=== PATIENT | male | born 1945 | race Caucasian/White ===

== ENCOUNTER 2017-11-28 01:31 | Inpatient (IN) | payer OTHER ==
[~2017-11-28] VITALS: Ht 175 cm; Wt 108.0 kg
[~2017-11-28 01:31] MED LIST: ATORVASTATIN CA10 M1 PO; LISINOPRIL-HCT1 EACH PO; OMEPRAZOLE40 M1 PO
[2017-11-28] MEDS ORDERED: HYDROCODON-ACE1 EAC2 PO (10:59)
[2017-11-28] MEDS ORDERED: VITAMIN B-121000 MC3 PO (11:00)
--- NOTE | 2017-11-28 11:29 | Admission Core Measures ---
Acute Coronary Syndrome (CM) ACS Core Measures Acute Coronary Syndrome Diagnosis No Congestive Heart Failure (NEW) CHF Core Measures Congestive Heart Failure Diagnosis No Cerebrovascular Accident CVA Core Measures CVA/TIA Diagnosis No Venous Thromboembolism VTE Core Osman (View Protocol) VTE Risk Factors Surgery No Mechanical VTE Prophylaxis d/t N/A MechProphylax Ordered No VTE Pharm Prophylaxis d/t NA PharmProphylax ordered Problem List As ranked by this Provider includes Assessment & Plan 1. Anh-prosthetic femoral shaft fracture HOME MEDS Home Med List Atorvastatin Calcium 10 MG TABLET 1 TAB PO DAILY CHOLESTEROL (Reported) Cyanocobalamin (Vitamin B-12) 1,000 MCG TABLET 1 TAB PO DAILY SUPP (Reported) Hydrocodone/Acetaminophen (Hydrocodon-Acetaminophen 5-325) 5 MG-325 MG TABLET 1 TAB PO EVERY 6HRS. PRN PAIN (Reported) Lisinopril/Hydrochlorothiazide (Lisinopril-Hctz 20-12.5 MG Tab) 20 MG-12.5 MG TABLET 1 TAB PO DAILY HTN (Reported) Omeprazole 40 MG CAPSULE.DR 1 CAP PO DAILY GERD (Reported)
[2017-11-28] MEDS ORDERED: ASPIRIN EC81 M1 PO (12:58)
[2017-11-28] MEDS ORDERED: COLACE100 M1 PO (12:58)
[2017-11-28] MEDS ORDERED: DILAUDID2 M1 PO (12:58)
[2017-11-28] MEDS ORDERED: MIRALAX17 G1 PO (12:58)
--- NOTE | 2017-11-28 13:01 | Patient Discharge Instructions ---
Discharge Instructions General Discharge Information You were seen/treated for: Right hip pain You had these procedures: Right total hip revision Watch for these problems: Fever over 101, Drainage from wound, Redness and swelling around wound, Unable to bear weight on right lower extremity No bath, but you may shower: Yes Special Instructions: Daily dry dressing change Diet Continue normal diet: Yes Activity Activity Limited to: Weight bear as tolerated (with rolling walker) Acute Coronary Syndrome Inclusion Criteria At DC or during hospital stay patient has or had the following: ACS DIAGNOSIS No Discharge Core Measures Meds if any: Prescribed or Continued at Discharge Meds if any: NOT Prescribed or Continued at Discharge Congestive Heart Failure Inclusion Criteria At DC or during hospital stay patient has or had the following: CHF DIAGNOSIS No Discharge Core Measures Meds if any: Prescribed or Continued at Discharge Meds if any: NOT Prescribed or Continued at Discharge Cerebrovascular accident Inclusion Criteria At DC or during hospital stay patient has or had the following: CVA/TIA Diagnosis No Discharge Core Measures Meds if any: Prescribed or Continued at Discharge Meds if any: NOT Prescribed or Continued at Discharge Venous thromboembolism Inclusion Criteria VTE Diagnosis No VTE Type NONE VTE Confirmed by (Test) NONE Discharge Core Measures - Per Current guidelines, there needs to be overlap - treatment for the first 5 days of Warfarin therapy. - If discharged on Warfarin prior to 5 days of - overlap therapy, the patient will need to be - assessed for post discharge needs including - *Post discharge parental anticoagulation - *Warfarin and/or parental anticoagulation education - *Follow up date to check INR post discharge At least 5 days overlap therapy as Inpatient No Meds if any: Prescribed or Continued at Discharge Note: Overlap Therapy is Warfarin and Anticoagulant Meds if any: NOT Prescribed or Continued at Discharge
--- NOTE | 2017-11-28 13:04 | Surgical Discharge Summary ---
Visit Information Visit Dates Admission Date: 11/28/17 Discharge Date: 12/01/17 History of Present Illness Chief Complaint: Right hip pain and existing right hip replacement Medical History Blood Transfusion Hx: Yes (2 uprbc) Isolation History: Standard Surgical History Pertinent Surgical History: hip replacement Review of Systems: As per [facility] Hospital Course Course Attending Physician: Samuel Costa MD Primary Care Physician: Dot LANG,[facility] Course: On 11/28/2017 patient presented for an elective revision of her right total hip replacement by Dr. Costa. Patient tolerated the procedure well. Postoperatively she was tolerating regular diet, voiding spontaneously, ambulating with physical therapy using a rolling walker, she was cleared for discharge. She was given discharge instructions and was instructed to follow up with Dr. Costa in 6 weeks. Patient was instructed to call sooner if she has any questions or concerns. Allergies: Coded Allergies: cefaclor (From CECLOR) (Mild, RASH 11/28/17) Disposition Summary Disposition Principal Diagnosis: Right hip periprosthetic fracture Additional Diagnosis: Status post right total hip replacement revision Discharge Disposition: home health services Discharge Instructions General Discharge Information Code Status: Full Code Patient's Diet: Regular Patient's Activity: Weight-bearing as tolerated with rolling walker Follow-Up Instructions/Appts: Follow-up with Dr. Costa in 6 weeks. Call sooner with any questions or concerns Medications at Discharge Discharge Medications: Stop taking the following medications: Hydrocodone/Acetaminophen (Hydrocodon-Acetaminophen 5-325) 5 MG-325 MG TABLET ORAL EVERY 6HRS. as needed for PAIN Continue taking these medications: Atorvastatin Calcium (Atorvastatin Calcium) 10 MG TABLET 1 Tablet ORAL DAILY Lisinopril/Hydrochlorothiazide (Lisinopril-Hctz 20-12.5 MG Tab) 20 MG-12.5 MG TABLET 1 Tablet ORAL DAILY Omeprazole (Omeprazole) 40 MG CAPSULE.DR 1 Capsule ORAL DAILY Cyanocobalamin (Vitamin B-12) 1,000 MCG TABLET 1 Tablet ORAL DAILY Start taking the following new medications: Aspirin (Ecotrin*) 81 MG TABLET.DR 1 Tablet ORAL TWICE DAILY Qty = 60 No Refills Hydromorphone HCl (Dilaudid) 2 MG TABLET 1-2 Tablet ORAL EVERY 4-6 HOURS NEEDED as needed for PAIN Qty = 36 No Refills Docusate Sodium (Colace) 100 MG CAPSULE 1 Capsule ORAL TWICE DAILY Qty = 14 No Refills Instructions: STOP TAKING IF YOU DEVELOP LOOSE STOOL/DIARRHEA Polyethylene Glycol 3350 (Miralax) 17 GRAM POWD.PACK 1 Packet ORAL DAILY Qty = 7 No Refills Instructions: dissolve in water. STOP TAKING IF YOU DEVELOP LOOSE STOOL/DIARRHEA Copies To: Dot LANG,Skye Canas
--- NOTE | 2017-11-28 17:22 | Operative Report ---
Operative/Inv Procedure Report Surgery Date: 11/28/17 Name of Procedure: Right total hip revision Pre-Operative Diagnosis: Right [place] type BII periprosthetic femur fracture Post-Operative Diagnosis: Same Estimated Blood Loss: 650 Surgeon/Smt Operator: Igor LANG,Samuel Donnelly Anesthesia: block Operative/Procedure Note Note: Description of Procedure: The patient was taken to the operating room and positively identified. After induction of spinal anesthesia and administration of appropriate pre-operative antibiotics, the patient was positioned supine on the operating room table and all bony prominences were well padded. After performing a surgical timeout, the right lower extremity was prepped and draped in the usual sterile fashion. Utilizing the previous incision, an extensile direct anterior approach was made to the right hip. This was carried down through skin and subcutaneous tissue to the level of the fascia. Meticulous hemostasis was maintained with Bovie cautery. The deep fascia was opened and the joint was entered. Minimal hematoma was encountered due to the age of the periprosthetic fracture. The femoral head was noted to be sitting on the calcar region. Extensive scar tissue was resected in order to gain exposure to the joint. The hip was dislocated and the femoral head and stem were disimpacted without difficulty. Exposure continued until the complete circumference of the proximal femur could be visualized. It was noted that the medial calcar fragment was nearly completely healed. The position in which it was healed was noted to be satisfactory. A pair of Dall-Miles cables were passed from the proximal femur. The canal was then prepared for a Newton sikh modular conical distal stem. It was reamed to accept a 19 mm x 155 mm sikh modular conical distal stem. The proximal femur was then prepared to accept a 23 mm +0 cone body. This was trialed for leg length and stability. The trial cone body was removed and the final cone body was impacted into place. The torque bolt was tightened to specification. The trunnion was cleaned and fit with a 36 mm -2.5 Biolox delta ceramic femoral head. The hip was reduced and put through a full range of motion and found to be quite stable. The intra-articular space was copiously irrigated with sterile saline. The periarticular soft tissues were infiltrated with Marcaine. The fascial layer was closed with interrupted #1 Vicryl sutures. The skin was reapproximated with interrupted 2-0 Vicryl and closed with jody. Was applied, the patient was awakened and taken to the recovery room in satisfactory condition.
[2017-11-28 17:28] LABS: ABSOLUTE BASOPHIL COUNT 0.1 /CUMM (0.0-0.2); ABSOLUTE EOSINOPHIL COUNT 0.2 /CUMM (0.0-0.7); ABSOLUTE GRANULOCYTE CT 6.9 /CUMM (1.4-6.5); ABSOLUTE LYMPH COUNT 2.4 /CUMM (1.2-3.4); ABSOLUTE MONOCYTE COUNT 0.9 /CUMM (0.10-0.60); BASOPHIL % 0.8 % (0.0-2.0); GRANULOCYTE % 65.7 % (42.2-75.2); HEMATOCRIT 31.1 % (42-52); MEAN CORPUSCULAR HGB 31.7 PG (27.0-31.0); MEAN CORPUSCULAR HGB CONC 33.5 G/DL (33.0-37.0); MEAN CORPUSCULAR VOLUME 94.8 FL (80.0-94.0); RBC DISTRIBUTION WIDTH 13.1 % (11.5-14.5); RED BLOOD CELL CT 3.28 /CUMM (4.70-6.10); WHITE BLOOD CELL COUNT 10.4 /CUMM (4.8-10.8)
[2017-11-28 17:49] LABS: MEAN PLATELET VOLUME ND FL (7.4-10.4); PLATELET COUNT ND /CUMM (130-400)
--- NOTE | 2017-11-28 19:19 | RADIOLOGY REPORT ---
EXAMINATION: XR HIP, RIGHT CLINICAL INFORMATION: Status post right total hip replacement. COMPARISON: None TECHNIQUE: Two views of the right hip. FINDINGS: There is a total right hip replacement with a immediate postop changes. The prosthetic components are in satisfactory alignment. There is a drainage catheter in the right lateral proximal thigh. IMPRESSION: Status post total right hip replacement with immediate postop changes noted.
[2017-11-28 19:35] VITALS: BP 130/68
--- NOTE | 2017-11-28 20:46 | PN- Orthopedic ---
Subjective Subjective: POC c/o pain at right hip/thigh, due for pain meds now. no oob, awaiting pt eval in am. +up via dejesus. 2nd unit of prbc almost complete. denies fever/chills/n/v/ sob/cp/castro/dizziness Objective Vital Signs and I&Os 130/68 hr 94 t 97.8 93% ra rr 16 Physical Exam: gen- nad card-s1s2 pulm- ctab abd- soft nt ext- r hip dressed- cdi, ice in place, hv with approx 100cc sanguinous drainage, gross sensation intact, gross dorsi/plantar flexion intact, +right dp/pt Assessment/Plan Assessment/Plan A- POD0 sp revision R ARIANNA, ebl 650cc, 2u prbcs transfusing for acute blood loss anemia r/t surgical procedure, currently stable w postop pain. P- hv to self suction oob, pt, wbat 2nd unit prbc running now, cbc/coags at mn, 6am, 6pm asa 81 bid to start tomorrow once H&H stable home meds prn pain meds dejesus in- strict i&os diet as tolerated dsg change pod2 will dw attending Core Measures Venous Thromboembolism VTE Risk Factors Surgery No Mechanical VTE Prophylaxis d/t N/A MechProphylax Ordered No VTE Pharm Prophylaxis d/t NA PharmProphylax ordered
[2017-11-28 22:32] VITALS: BP 112/60
[2017-11-29 00:49] LABS: ABSOLUTE BASOPHIL COUNT 0 /CUMM (0.0-0.2); ABSOLUTE EOSINOPHIL COUNT 0 /CUMM (0.0-0.7); ABSOLUTE GRANULOCYTE CT 9.6 /CUMM (1.4-6.5); ABSOLUTE LYMPH COUNT 0.6 /CUMM (1.2-3.4); ABSOLUTE MONOCYTE COUNT 0.8 /CUMM (0.10-0.60); BASOPHIL % 0.1 % (0.0-2.0); EOSINOPHIL % 0 % (0-5); HEMATOCRIT 33.3 % (42-52); MEAN CORPUSCULAR HGB 31.4 PG (27.0-31.0); MEAN CORPUSCULAR VOLUME 92.4 FL (80.0-94.0); PLATELET COUNT 245 /CUMM (130-400); RBC DISTRIBUTION WIDTH 14.3 % (11.5-14.5); RED BLOOD CELL CT 3.61 /CUMM (4.70-6.10); WHITE BLOOD CELL COUNT 11.1 /CUMM (4.8-10.8)
[2017-11-29 00:58] LABS: PT 12.7 SEC (9.4-12.5); PTT 21 SEC (25-37)
[2017-11-29 01:07] LABS: GRANULOCYTE % 87.2 % (42.2-75.2)
[2017-11-29 05:53] VITALS: BP 134/68
[2017-11-29 08:37] LABS: ABSOLUTE BASOPHIL COUNT 0 /CUMM (0.0-0.2); ABSOLUTE EOSINOPHIL COUNT 0.1 /CUMM (0.0-0.7); ABSOLUTE GRANULOCYTE CT 7.1 /CUMM (1.4-6.5); ABSOLUTE LYMPH COUNT 0.7 /CUMM (1.2-3.4); ABSOLUTE MONOCYTE COUNT 0.8 /CUMM (0.10-0.60); BASOPHIL % 0.2 % (0.0-2.0); EOSINOPHIL % 0.8 % (0-5); HEMATOCRIT 34.3 % (42-52); MEAN CORPUSCULAR HGB 31.1 PG (27.0-31.0); MEAN CORPUSCULAR HGB CONC 33.7 G/DL (33.0-37.0); MEAN CORPUSCULAR VOLUME 92.3 FL (80.0-94.0); MEAN PLATELET VOLUME 9.2 FL (7.4-10.4); PLATELET COUNT 248 /CUMM (130-400); RBC DISTRIBUTION WIDTH 14.6 % (11.5-14.5); RED BLOOD CELL CT 3.71 /CUMM (4.70-6.10); WHITE BLOOD CELL COUNT 8.7 /CUMM (4.8-10.8)
[2017-11-29 09:34] VITALS: BP 104/78
--- NOTE | 2017-11-29 11:17 | PN- Orthopedic ---
Subjective Subjective: pt sitting in chair, states his pain is currently 7/10. He is falling asleep in chair as we are talking. dejesus in place. Tolerating diet, no nausea. deneis paresthesias. denies Cp/SOb, GERMAN, fever, states he has some mild dizziness Objective Vital Signs and I&Os Vital Signs Date Time Temp Pulse Resp B/P B/P Pulse O2 O2 Flow FiO2 Mean Ox Delivery Rate 11/29 1007 98 104/78 11/29 0934 98 104/78 11/29 0553 97.6 88 20 134/68 98 Room Air 11/28 2232 98.3 100 18 112/60 99 Room Air 11/28 1935 97.8 95 18 130/68 93 Room Air Intake & Output 11/29 1600 11/29 0800 11/29 0000 11/28 1600 11/28 0800 11/28 0000 Intake Total 1000 965 Output Total 455 300 Balance 545 665 Intake, IV 800 725 Intake, Oral 200 240 Number 0 Bowel Movements Output, 55 100 Drainage Output, Urine 400 200 Patient 238 lb Weight Weight Reported by Patient Measurement Method Physical Exam: gen- NAD resp- clear cardiac- RRR abd- soft, NT ext- right thigh soft, dressing with minimal serosang drainage at inferior aspect of dressing. drain in place with sang drainage in canister. drain output 55cc overnight Current Medications: Current Medications Sig/Gisel Start time Last Medication Dose Route Stop Time Status Admin Acetaminophen 1,000 MG Q6 11/28 2359 AC 11/29 IV 11/29 1801 0553 Acetaminophen 0 .STK-MED ONE 11/28 1228 DC PO Acetaminophen 975 MG ONCE 11/28 0000 DC PO 11/28 2359 Aspirin 81 MG BID 11/29 0900 AC 11/29 PO 0931 Atorvastatin Calcium 10 MG 1700 11/29 1700 DC PO Atorvastatin Calcium 10 MG 1700 11/29 1700 AC PO Cefazolin Sodium 2 GM IQ8 11/28 1600 DC 11/29 N/A 1 UNIT IV 11/29 0029 0031 Cefazolin Sodium 2,000 MG ONCE 11/28 0000 DC IV 11/28 2359 Dextrose/Sodium 1,000 ML .[id number] 11/28 2045 DC 11/28 Chloride IV 11/29 1004 2109 Docusate Sodium 100 MG BID 11/28 2100 AC 11/29 PO 0931 Fentanyl Citrate 100 MCG .STK-MED ONE 11/28 1319 DC IM 11/28 1320 Hydrochlorothiazide 12.5 MG DAILY 11/29 09 AC PO Hydromorphone HCl 2 MG Q4P PRN 11/28 2044 AC PO Hydromorphone HCl 4 MG Q4P PRN 11/28 204 AC 11/29 PO 0810 Hydromorphone HCl 2 MG .STK-MED ONE 11/28 1907 DC IM 11/28 1908 Hydromorphone HCl 2 MG .STK-MED ONE 11/28 1846 DC IM 11/28 1847 Hydromorphone HCl 2 MG .STK-MED ONE 11/28 1823 DC IM 11/28 1824 Lisinopril 20 MG DAILY 11/29 09 DC PO Lisinopril 20 MG DAILY 11/29 0900 AC PO Morphine Sulfate 2 MG Q2P PRN 11/28 2115 AC 11/29 IV 1030 Morphine Sulfate 2 MG Q2P PRN 11/28 2044 DC IV Omeprazole 40 MG DAILY AC 11/29 0700 DC PO Omeprazole 40 MG DAILY AC 11/29 0700 AC 11/29 PO 0551 Ondansetron HCl 4 MG Q6P PRN 11/28 2044 AC IV Oxycodone HCl 0 .STK-MED ONE 11/28 1228 DC PO Oxycodone HCl 10 MG ONCE 11/28 0000 DC PO 11/28 2359 Polyethylene Glycol 17 GM DAILY 11/29 0900 AC 11/29 PO 0931 Tranexamic Acid 2,000 MG .STK-MED ONE 11/28 1320 DC IV 11/28 1321 Results Last 48 Hours of Labs: Laboratory Tests 11/29 11/29 0730 0036 Chemistry Sodium (137 - 145 mmol/L) 136 L Potassium (3.5 - 5.1 mmol/L) 4.0 Chloride (98 - 107 mmol/L) 105 Carbon Dioxide (22 - 30 mmol/L) 23 Anion Gap (5 - 16) 8 BUN (9 - 20 mg/dL) 16 Creatinine (0.7 - 1.2 mg/dL) 0.8 Estimated GFR (>60 ml/min) > 60 BUN/Creatinine Ratio (7 - 25 %) 20.0 Coagulation PT (9.4 - 12.5 SEC) 12.7 H INR (0.90 - 1.17) 1.16 APTT (25 - 37 SEC) 21 L Hematology CBC w Diff NO MAN DIFF REQ NO MAN DIFF REQ WBC (4.8 - 10.8 /CUMM) 8.7 11.1 H RBC (4.70 - 6.10 /CUMM) 3.71 L 3.61 L Hgb (14.0 - 18.0 G/DL) 11.5 L 11.3 L Hct (42 - 52 %) 34.3 L 33.3 L MCV (80.0 - 94.0 FL) 92.3 92.4 MCH (27.0 - 31.0 PG) 31.1 H 31.4 H MCHC (33.0 - 37.0 G/DL) 33.7 34.0 RDW (11.5 - 14.5 %) 14.6 H 14.3 Plt Count (130 - 400 /CUMM) 248 245 MPV (7.4 - 10.4 FL) 9.2 9.0 Gran % (42.2 - 75.2 %) 81.0 H 87.2 H Lymphocytes % (20.5 - 51.1 %) 8.4 L 5.6 L Monocytes % (1.7 - 9.3 %) 9.6 H 7.1 Eosinophils % (0 - 5 %) 0.8 0 Basophils % (0.0 - 2.0 %) 0.2 0.1 Absolute Granulocytes (1.4 - 6.5 /CUMM) 7.1 H 9.6 H Absolute Lymphocytes (1.2 - 3.4 /CUMM) 0.7 L 0.6 L Absolute Monocytes (0.10 - 0.60 /CUMM) 0.8 H 0.8 H Absolute Eosinophils (0.0 - 0.7 /CUMM) 0.1 0 Absolute Basophils (0.0 - 0.2 /CUMM) 0 0 06/18 1700 Hematology CBC w Diff NO MAN DIFF REQ WBC (4.8 - 10.8 /CUMM) 10.4 RBC (4.70 - 6.10 /CUMM) 3.28 L Hgb (14.0 - 18.0 G/DL) 10.4 L Hct (42 - 52 %) 31.1 L MCV (80.0 - 94.0 FL) 94.8 H MCH (27.0 - 31.0 PG) 31.7 H MCHC (33.0 - 37.0 G/DL) 33.5 RDW (11.5 - 14.5 %) 13.1 Plt Count (130 - 400 /CUMM) ND MPV (7.4 - 10.4 FL) ND Gran % (42.2 - 75.2 %) 65.7 Lymphocytes % (20.5 - 51.1 %) 23.1 Monocytes % (1.7 - 9.3 %) 8.4 Eosinophils % (0 - 5 %) 2.0 Basophils % (0.0 - 2.0 %) 0.8 Absolute Granulocytes (1.4 - 6.5 /CUMM) 6.9 H Absolute Lymphocytes (1.2 - 3.4 /CUMM) 2.4 Absolute Monocytes (0.10 - 0.60 /CUMM) 0.9 H Absolute Eosinophils (0.0 - 0.7 /CUMM) 0.2 Absolute Basophils (0.0 - 0.2 /CUMM) 0.1 Assessment/Plan Assessment/Plan A- POD1 sp revision R ARIANNA, ebl 650cc, 2u prbcs transfusing for acute blood loss anemia r/t surgical procedure, currently stable w postop pain. Hematocrit stable , will continue to follow labs P- hv to self suction oob, pt, wbat asa 81 bid to start today try to limit morphine as pt is falling asleep while talking and dizzy home meds prn pain meds dejesus out diet as tolerated dsg change pod2 will dw attending Core Measures Venous Thromboembolism VTE Risk Factors Surgery No Mechanical VTE Prophylaxis d/t N/A MechProphylax Ordered No VTE Pharm Prophylaxis d/t NA PharmProphylax ordered
[2017-11-29 14:54] VITALS: BP 140/74
[2017-11-29 21:52] VITALS: BP 120/64
[2017-11-30 07:40] VITALS: BP 124/68
--- NOTE | 2017-11-30 08:42 | PN- Orthopedic ---
Subjective Subjective: No acute post operative events. Pain poorly controlled, is requesting additional tylenol. Pt having difficulty ambulating, feels that walker without rolling capability is inhibiting him. He anticipates rolling walker today and improving mobility. Denies chest pain, shortness of breath and difficulty breathing. Denies nausea and vomitting. Denies difficulty voiding. Objective Vital Signs and I&Os Vital Signs Date Time Temp Pulse Resp B/P B/P Pulse O2 O2 Flow FiO2 Mean Ox Delivery Rate 11/30 0813 92 126/72 11/30 0740 98.0 87 18 124/68 98 11/29 2152 97.6 90 18 120/64 95 Room Air 11/29 1454 97.8 101 20 140/74 95 Room Air 11/29 1445 Room Air 11/29 1007 98 104/78 11/29 0934 98 104/78 Intake & Output 11/30 1600 11/30 0800 11/30 0000 11/29 1600 11/29 0800 11/29 0000 Intake Total 120 5383 557 1993 965 Output Total 992 917 7959 455 300 Balance -200 530 -330 545 665 Intake, IV 100 225 800 725 Intake, Oral 120 900 450 200 240 Number 1 0 Bowel Movements Output, 20 20 130 55 100 Drainage Output, Urine 300 450 875 400 200 Patient 238 lb Weight Weight Reported by Patient Measurement Method Physical Exam: General: Alert and oriented x3, no acute distress Cardiac: RRR, s1s2 Pulm: CTA bilaterally, non-labored respiratory effort Abd: Obese, non-tender, non-distended Extremities: Moves all extremities, distal sensation grossly intact. Skin warm and well perfused. Bilateral calves soft and non-tender, dp pulses palpable. Surgical site: R hip. Dressing dry and intact. Thigh compartment soft. Hemovac holding suction, minimal drainage. Dressing removed, Skin edges well approximated with jody. No drainage, no erythema. Mild ecchymosis. Hemovac dc'd. No drainage at site. Clean dry dressing reapplied. Assessment/Plan Assessment/Plan This is a 72 year old male, POD 2, s/p revision R THR. High surgical ebl, hemovac remained in place until this am. Pain poorly controlled -Add po tylenol, 1g q6hrs prn -Get rolling walker -ASA bid for dvt ppx -OOB, WBAT -Diet as tolerated Anticipate dc to [facility] when pain controlled and pt cleared Will discuss plan of care with Dr. Costa Core Measures Venous Thromboembolism VTE Risk Factors Surgery No Mechanical VTE Prophylaxis d/t N/A MechProphylax Ordered No VTE Pharm Prophylaxis d/t NA PharmProphylax ordered
[2017-11-30 14:19] VITALS: BP 138/60
[2017-11-30 21:56] VITALS: BP 124/58
--- NOTE | 2017-12-01 07:45 | PN- Orthopedic ---
Subjective Subjective: POD 3 RIGHT ARIANNA-REVISION DOING WELL WITHOUT COMPLAINTS, PAIN TOLERATED OVERNIGHT VOIDING AND TAKING POs Objective Vital Signs and I&Os Vital Signs Date Time Temp Pulse Resp B/P B/P Pulse O2 O2 Flow FiO2 Mean Ox Delivery Rate 11/30 2156 98.5 86 20 124/58 98 Room Air 11/30 1419 97.9 97 20 138/60 96 Room Air 11/30 0813 92 126/72 11/30 0740 98.0 87 18 124/68 98 Intake & Output 12/01 0800 12/01 0000 11/30 1600 11/30 0800 11/30 0000 11/29 1600 Intake Total 490 300 208 170 4772 675 Output Total 350 200 300 466 402 3431 Balance 140 100 200 -200 530 -330 Intake, IV 10 100 225 Intake, Oral 480 300 500 120 900 450 Number 0 1 0 1 Bowel Movements Output, 20 20 130 Drainage Output, Urine 350 200 300 300 450 875 VSS AFEBRILE CHEST-cta SYMMETRIC HEART-RRR RIGHT HIP -DRESSING CDI WITHOUT DRAINAGE THIGH SOFT CALVES SOFT WITHOUT TENDERNESS AND DISTAL PULSES INTACT Admission Lab Results I reviewed the following labs: NO LABS THIS AM Assessment/Plan Assessment/Plan POD3 REVISION ARIANNA PATIENT WOULD LIKED TO BE D/[facility] HOME WITH [facility]. HE HAS A FLIGHT OF STEPS TO GET UP FOR HIS BEDROOM. WE WILL SEE HOW HE DOES WITH PT. IF CLEARED D/C HOME Core Measures Venous Thromboembolism VTE Risk Factors Surgery No Mechanical VTE Prophylaxis d/t N/A MechProphylax Ordered No VTE Pharm Prophylaxis d/t NA PharmProphylax ordered
[2017-12-01 08:05] VITALS: BP 130/67
== END 2017-12-01 12:35 | disposition home health service (06) | DRG 467 ==
LOC: SDA 01:31 → ENRESERV 18:10 → ENTRNSPT 19:20 → EDTRNSPT 19:24 → EDTRNSPTSTS 19:24 → 2NB 19:34 → CMPTRNSPT 19:45 → ENPENDDIS 12-01 11:32 → ENTRNSPT 12-01 12:11 → EDTRNSPT 12-01 12:30 → EDTRNSPTSTS 12-01 12:30 → 2NB 12-01 12:35 → CMPTRNSPT 12-01 12:59
PROVIDERS: Orthopaedic Surgery; Physician Assistant Surgical
PROC: 0SR903A Replacement of Right Hip Joint with Ceramic Synthetic Substitute, Uncemented, Open Approach (ICD-10-PCS; principal; 2017-11-28)
PROC: 0SP90JZ Removal of Synthetic Substitute from Right Hip Joint, Open Approach (ICD-10-PCS; principal; 2017-11-28)
PROC: 30233N1 Transfusion of Nonautologous Red Blood Cells into Peripheral Vein, Percutaneous Approach (ICD-10-PCS; 2017-11-28)
DX: M97.01XA Periprosthetic fracture around internal prosthetic right hip joint, initial encounter (principal); D62 Acute posthemorrhagic anemia; I25.10 Atherosclerotic heart disease of native coronary artery without angina pectoris; I10 Essential (primary) hypertension; K21.9 Gastro-esophageal reflux disease without esophagitis; Z98.84 Bariatric surgery status; Z95.5 Presence of coronary angioplasty implant and graft; Z88.8 Allergy status to other drugs, medicaments and biological substances
CPT/HCPCS: 2NBSP; 36592; 73502-RT; 82436; 86920; 87086; 97110-GO; 97116-GO; 97161-GP; 97530-GO; J0131; J0690; J0735; J2405; J3490; J7042; P9016